=== PATIENT | male | born 1990 | race Caucasian/White ===

== ENCOUNTER 2017-08-27 20:10 | Emergency (ER) | payer OTHER ==
[~2017-08-27] VITALS: Ht 172.7 cm; Wt 78.0 kg
[~2017-08-27 20:10] MED LIST: BACTRIM DS TAB1 EACH PO; HUMALOG100 UNIT/2; LANTUS100 UNIT/M
[2017-08-27] MEDS ORDERED: SUBOXONE 8 MG-1 EAC3 PO (20:19)
[2017-08-27] MEDS ORDERED: AMOXICILLIN500 M1 PO (20:19)
[2017-08-27 21:09] VITALS: BP 137/95
== END 2017-08-27 21:12 | disposition home or self-care (01) ==
LOC: M.ERS 20:10
DX: K08.89 Other specified disorders of teeth and supporting structures (principal); E11.9 Type 2 diabetes mellitus without complications; F17.210 Nicotine dependence, cigarettes, uncomplicated; Z79.4 Long term (current) use of insulin; Z88.5 Allergy status to narcotic agent; Z88.8 Allergy status to other drugs, medicaments and biological substances